=== PATIENT | male | born 1975 | race Native Hawaiian/Other Pacific Islander ===

== ENCOUNTER 2019-08-06 18:06 | Emergency (ER) | payer OTHER ==
[~2019-08-06] VITALS: Ht 193 cm; Wt 81.6 kg
[2019-08-06 18:39] LABS: PLATELET COUNT 279 K/uL (142-355)
[2019-08-06 19:00] VITALS: BP 154/95
[2019-08-06 19:11] LABS: POTASSIUM 3.2 mmol/L (3.6-5.2)
[2019-08-06 19:16] LABS: PARTIAL THROMBOPLASTIN TIME 23.9 SECONDS (24.5-33.6)
== END 2019-08-06 18:58 | disposition short-term general hospital (02) ==
LOC: ED 18:06
PROVIDERS: Emergency Medicine
DX: T63.011A Toxic effect of rattlesnake venom, accidental (unintentional), initial encounter (principal)
CPT/HCPCS: 80053; 85027; 85385; 85610; 85730; 90471; 90715; 96365; 99285; J0696